=== PATIENT | female | born 1955 | race Caucasian/White ===

== ENCOUNTER 2023-10-23 21:06 | Emergency (ER) | payer OTHER ==
[~2023-10-23] VITALS: Ht 152.4 cm; Wt 118.4 kg
--- NOTE | ~2023-10-23 | EKG ---
[facility] [address] [place], [place] [address] Draft EK completed, results pending confirmation PATIENT NAME: SCARLETT REEDER Electrocardiogram DATE OF : 51 PHYSICIAN: PRELIMINARY REPORT #: [id number] REPORT IS CONFIDENTIAL AND NOT TO BE RELEASED WITHOUT AUTHORIZATION
[2023-10-23] MEDS ORDERED: LISINOPRIL5 MG PO (21:24)
[2023-10-23] MEDS ORDERED: OXYCODONE HCL5 MG PO (21:24)
[2023-10-23] MEDS ORDERED: HYDROXYZINE HCL10 MG PO (21:25)
[2023-10-23] MEDS ORDERED: PANTOPRAZOLE SO20 MG PO (21:25)
[2023-10-23] MEDS ORDERED: ELIQUIS2.5 MG PO (21:25)
[2023-10-23] MEDS ORDERED: SEROQUEL25 MG PO (21:28)
[2023-10-23 21:36] LABS: BASOPHILS 0.3 % (0-2); EOSINOPHILS 4.9 % (0-6); HEMATOCRIT 32.1 % (35.0-50.0); HEMOGLOBIN 10.5 g/dL (12.0-18.0); LYMPHOCYTES 25.1 % (24-44); MCH 29.3 (27-36); MCHC 32.6 g/dl (30-36); MCV 89.8 fl (81-99); MONOCYTES 14.1 % (0-12); NEUTROPHILS 55.6 % (39-80); PLATELET COUNT 221 K/uL (140-440); RBC 3.58 M/ul (4.3-5.7); RDW 14.7 (10.5-15.0)
[2023-10-23 21:46] LABS: INR 1.18 (0.80-1.30); PROTIME 14.3 Sec (11.2-14.2)
[2023-10-23 21:58] LABS: ALBUMIN 3.3 g/dL (3.4-5.0); ALBUMIN/GLOBULIN RATIO 0.92 (1.1-2.4); ANION GAP 11.1 (7-21); BILIRUBIN, TOTAL 0.3 ng/dL (0.2-1.0); BUN/CREATININE RATIO 12.28 (6.0-28.6); CALCIUM 8.3 mg/dL (8.5-10.1); CREATININE, SERUM 1.14 mg/dL (0.55-1.02); MAGNESIUM 1.8 mg/dL (1.8-2.4); POTASSIUM 4.1 mmol/L (3.5-5.1); PROTEIN, TOTAL 6.9 g/dL (6.4-8.2)
--- OUTSIDE RECORDS SUMMARY | 2023-10-23 22:01 | XMS ---
PreManage Notification: SCARLETT REEDER Security Clinical Assessment Manager Events No recent Security Events currently on file CRITERIA MET - 6 ED Visits in 6 Months - [facility] - [facility] - 3 Facilities in 90 Days CARE PROVIDERS Keri Huntony Parachute/Combatant Diver Officer/Scientific Publications Editor 04/23/2023-Current PHONE: [phone] AYO OSEGUERA Physician Outside Upholsterer: Surgical Current TOO Rueda PHONE: [phone] [place] White [facility] Current PHONE: Unknown MAHESH SOTELO Nurse Practitioner: Primary Care Current PHONE: Unknown Abby Darling Nurse Practitioner: Family Current PHONE: [phone] [facility] WITH Family Medicine Current [facility] PHONE: [phone] ALEXIA ONTIVEROS Nurse Practitioner: Family Current PHONE: Unknown LAWRENCE FELIZ Nurse Practitioner: Family Current PHONE: [phone] ANGELITA RAMIREZ Current PHONE: Unknown GLENIS Moreno [facility] Current PHONE: Unknown CHOLO MANCILLA Nurse Practitioner: Family Devika REILLY PHONE: [phone] Care Guidelines exist for the following facilities: [facility] ( 08/25/2020 ) [facility] ( 07/06/2017 ) Magy VISIT COUNT (12 MO.) [address] [facility] Ligia Holguin [facility] ([facility]D Exch[facility] TOTAL 15 NOTE: Visits indicate total known visits. ED/UCC VISIT TRACKING (12 MO.) 10/23/2023 21:07 MIKHAIL Dempsey TYPE: Emergency COMPLAINT: - HIGH BLOOD PRESSURE 08/18/2023 11[facility] DIAGNOSES: - Contusion of right knee, initial encounter - Unspecified sprain of right wrist, initial encounter - Fall - Fall, wrist pain 08/03/2023 14:38 [facility] ID TYPE: Emergency DIAGNOSES: - Acute cystitis without hematuria - Acute kidney failure, unspecified - Hypo-osmolality and hyponatremia - Painful urination - UTI 08/01/2023 13:14 [facility] ID TYPE: Emergency DIAGNOSES: - Poisoning by unspecified drugs, medicaments and biological substances, accidental (unintentional), initial encounter - Drug Overdose - Leg Pain 07/30/2023 23:09 [facility] [place] ID TYPE: Emergency DIAGNOSES: - Unspecified fracture of shaft of left fibula, initial encounter for closed fracture - Left Leg Pain - Leg Pain [facility]23 02[facility] COMPLAINT: - Fall DIAGNOSES: - Contusion of left knee, initial encounter - Contusion of left lower leg, initial encounter - Unspecified fall, initial encounter - Fall 07/16/2023 13:03 [facility] TYPE: Emergency COMPLAINT: - Hands and Feet Pain DIAGNOSES: - Polyneuropathy, unspecified - foot pain - Hand Pain - Hands and Feet Pain 07/12/2023 03:49 [facility] TYPE: Emergency COMPLAINT: - took too much medication DIAGNOSES: - Poisoning by unspecified drugs, medicaments and biological substances, accidental (unintentional), initial encounter - Drug Overdose - took too much medication 06/15/2023 04:20 [facility] TYPE: Emergency COMPLAINT: - LF fall DIAGNOSES: - Contusion of left foot, initial encounter - Contusion of left hip, initial encounter - Unspecified fall, initial encounter - Fall - LF fall 03/25/2023 11:44 [facility] TYPE: Emergency COMPLAINT: - low oxygen DIAGNOSES: - Acute kidney failure, unspecified - Hypo-osmolality and hyponatremia - low oxygen - Nausea - Vomiting - Weakness - Generalized 03/07/2023 16:09 [facility] TYPE: Emergency COMPLAINT: - Right hip Pain, Headache DIAGNOSES: - Pain in right hip - Hip Pain - Right hip Pain, Headache 02/02/2023 15:24 [facility] TYPE: Emergency COMPLAINT: - Nausea, vomiting, fever, vertigo DIAGNOSES: - Cellulitis of abdominal wall - Cellulitis of abdominal wall - Nausea with vomiting, unspecified - Nausea with vomiting, unspecified - Nausea - Nausea, vomiting, fever, vertigo - Vomiting 01/31/2023 17:02 [facility] ([facility] Exch[facility] TYPE: Emergency COMPLAINT: - Left wrist pain (Primary Dx) DIAGNOSES: - Pain in left wrist 01/31/2023 17:02 [facility] TYPE: Emergency COMPLAINT: - left wrist pain, DIAGNOSES: - Pain in left wrist - left wrist pain, - Wrist Pain 12/05/2022 20:49 [facility] TYPE: Emergency COMPLAINT: - upper abdominal pain, nausea, heartburn, DIAGNOSES: - Calculus of bile duct without cholangitis or cholecystitis without obstruction - Calculus of bile duct without cholangitis or cholecystitis without obstruction - Right upper quadrant pain - Right upper quadrant pain - Abdominal Pain - upper abdominal pain, nausea, heartburn, INPATIENT VISIT TRACKING (12 MO.) 03/25/2023 16:56 [facility] Jonny LISHA Palacios TYPE: General Medicine COMPLAINT: - low oxygen DIAGNOSES: - Acute kidney failure, unspecified - Hypo-osmolality and hyponatremia 01/31/2023 13:30 [facility] ([facility] TYPE: Surgery COMPLAINT: - Post-operative nausea and vomiting (Primary Dx) DIAGNOSES: - Nausea with vomiting, unspecified 01/18/2023 10:16 [facility] Arianna-Luisa [facility] TYPE: Surgery DIAGNOSES: - Benign lipomatous neoplasm of skin and subcutaneous tissue of trunk - Calculus of gallbladder with chronic cholecystitis without obstruction 01/18/2023 07:30 [facility] ([facility] Exch[facility] TYPE: Inpatient COMPLAINT: - CHOLECYSTECTOMY LAPAROSCOPIC/LYSIS OF ADHESIONS DIAGNOSES: - Benign lipomatous neoplasm of skin and subcutaneous tissue of trunk - Calculus of gallbladder with chronic cholecystitis without obstruction 01/18/2023 05:59 [facility] ([facility] Exch[facility] TYPE: Inpatient COMPLAINT: - Chronic cholecystitis with calculus; Lipoma of abdominal wall DIAGNOSES: - Benign lipomatous neoplasm of skin and subcutaneous tissue of trunk - Calculus of gallbladder with chronic cholecystitis without obstruction 12/07/2022 12:30 [facility] ([facility] Exch[facility] TYPE: Surgery COMPLAINT: - Chronic cholecystitis with calculus (Primary Dx); Lipoma of abdominal wall DIAGNOSES: - Benign lipomatous neoplasm of skin and subcutaneous tissue of trunk - Calculus of gallbladder with chronic cholecystitis without obstruction [email or web address]
[2023-10-23] MEDS ORDERED: LASIX20 MG PO (22:35)
[2023-10-23] MEDS ORDERED: FUROSEMIDE 20 MG TAB PO ONE (22:45)
[2023-10-24 00:15] VITALS: BP 159/88
== END 2023-10-24 00:15 | disposition home or self-care (01) ==
LOC: ED 21:06
PROVIDERS: Family Medicine
DX: I10 Essential (primary) hypertension (principal); R60.0 Localized edema; F32.A Depression, unspecified; Z79.01 Long term (current) use of anticoagulants; Z79.899 Other long term (current) drug therapy; Z88.8 Allergy status to other drugs, medicaments and biological substances
CPT/HCPCS: 36415; 70450; 71045; 80053; 83735; 83880; 84484; 85025; 85610; 93005; 93010